=== PATIENT | male | born 1950 | race Caucasian/White ===

== ENCOUNTER 2021-02-20 18:09 | Emergency (ER) | payer MEDICARE, OTHER ==
[~2021-02-20] VITALS: Ht 175.3 cm; Wt 72.6 kg
[~2021-02-20 18:09] MED LIST: ADULT LOW DOSE81 MG PO; FLONASE16 GM; METHOCARBAMOL750 MG PO; TYLENOL WITH C1 EACH PO; ULTRAM50 MG PO
== END 2021-02-20 21:00 | disposition home or self-care (01) ==
LOC: ER 21:00
DX: S61.431A Puncture wound without foreign body of right hand, initial encounter (principal); W29.8XXA Contact with other powered hand tools and household machinery, initial encounter; Y92.008 Other place in unspecified non-institutional (private) residence as the place of occurrence of the external cause; H91.3 Deaf nonspeaking, not elsewhere classified
CPT/HCPCS: 99283

== ENCOUNTER → 2021-09-20 | Outpatient (CLI) | payer MEDICARE, OTHER | LOC: RAD 13:23 | PROVIDERS: ATTEND Internal Medicine | DX: M54.50 Low back pain, unspecified (principal) | CPT/HCPCS: 72100 ==